=== PATIENT | female | born 1990 | race Caucasian/White ===

== ENCOUNTER 2016-05-08 23:42 | Emergency (ER) | payer SELFPAY ==
[~2016-05-08] VITALS: Ht 162.6 cm; Wt 54.5 kg
[2016-05-08 23:48] VITALS: Ht 162.6 cm; Wt 54.5 kg
== END 2016-05-09 01:40 | disposition left against medical advice (07) ==
LOC: E/R 23:42
DX: Z53.21 Procedure and treatment not carried out due to patient leaving prior to being seen by health care provider (principal)